=== PATIENT | female | born 1965 | race Caucasian/White ===

== ENCOUNTER 2020-09-02 12:56 | Emergency (ER) | payer OTHER ==
[~2020-09-02] VITALS: Ht 175.3 cm; Wt 114.3 kg
--- NOTE | 2020-09-02 13:11 | NUR ---
Dr Carlton at the bedside for MSE.
[2020-09-02 14:19] VITALS: BP 127/78
--- NOTE | 2020-09-02 14:20 | NUR ---
Patient discharged to home in stable condition. Written and verbal after care instructions given. Patient verbalizes understanding of instructions. Stressed follow up or return to ER for worsening s/s.
== END 2020-09-02 14:28 | disposition home or self-care (01) ==
LOC: ER 12:56
DX: R60.0 Localized edema (principal); M25.561 Pain in right knee; Z85.850 Personal history of malignant neoplasm of thyroid; Z98.890 Other specified postprocedural states
CPT/HCPCS: A4663